=== PATIENT | female | born 1995 | race Hispanic/Latino ===

== ENCOUNTER 2016-04-05 11:42 | Emergency (ER) | payer OTHER ==
--- NOTE | 2016-04-05 12:41 | EDDOCDS ---
Physician Documentation [facility] Name: Lynette Olvera Age: 20 yrs Sex: Female : 1995 Arrival Date: 04/05/2016 Time: 11:42 Bed Triage 1 Private MD: Other - Complete Info On Cds Disposition: 04/05/16 12:31 Discharged to Home/Self Care. Impression: Urticaria, unspecified. - Condition is Stable. - Discharge Instructions: Hives. - Prescriptions for Pepcid 20 mg Oral Tablet - take 1 tablet by ORAL route once daily for 5 days; 5 tablet. Prednisone 20 mg Oral Tablet - take 2 tablets by ORAL route once daily for 5 days TAKE WITH FOOD, EARLIER IN THE DAY; 10 tablet. - Medication Reconciliation, Local Pharmacy Hours form. - Follow up: Emergency Department; When: As needed; Reason: Worsening of conditions. Follow up: Private Physician; When: 2 - 3 days; Reason: Wound/Symptom Recheck, Recheck today's complaints, Continuance of care. - Problem is new. - Symptoms are unchanged. Historical: - Allergies: No known drug Allergies; - Home Meds: 1. Benadryl 25 mg Oral cap 2 caps PRN (Last dose: 04/05/2016 06:00) - PMHx: none; - PSHx: Appendectomy; - Social history: Smoking status: Patient states was never smoker of tobacco. No barriers to communication noted, The patient speaks fluent Tamazight, Speaks appropriately for age. - Family history: Not pertinent. - : The pt / caregiver states he / she is not on anticoagulants. Home medication list is obtained from the patient. - Exposure Risk Screening:: None identified. 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 1 in. (154.94 cm) (R); Pain 3/10; 11:44 Body Mass Index 24.56 (58.97 kg, 154.94 cm) gr2 MDM: 12:28 Financial registration complete. lg Signatures: Cynthia Vallejo RN RN Jovana Hylton, Veronique Lewis lg,RN RN ck1 Geeta Arrington, HOANG BOLTON dt4 MTDD
--- NOTE | 2016-04-05 12:41 | EDDOCDS ---
Nurse's Notes [facility] Name: Lynette Olvera Age: 20 yrs Sex: Female : 1995 Arrival Date: 04/05/2016 Time: 11:42 Bed Triage 1 Private MD: Other - Complete Info On Cds Diagnosis: Urticaria, unspecified Presentation: 04/05 11:46 Presenting complaint: Patient states: Red, raised , itchy rash "all over" for a week ck1 and a half. Onset: The symptoms/episode began/occurred gradually. This patient has not experienced a previous allergic reaction. Anaphylaxis evaluation, the patient reports or I have noted the following symptoms which indicate a significant risk of anaphylaxis: no signs or symptoms of anaphylaxis were noted. Adult Sepsis Screening: The patient does not have new or worsening altered mentation. Adult Sepsis Screening: Patient's respiratory rate is less than 22. Systolic blood pressure is greater than 100. Patient has a qSOFA score of 0- Negative Sepsis Screen. Suicide/Homicide risk assessment- the patient denies having any suicidal and/or homicidal ideations and does not present with any other emotional, behavioral or mental health complaints. Status: The patient is a dependent. Transition of care: patient was not received from another setting of care. 11:46 Acuity: IBIS Level 4 ck1 11:46 Method Of Arrival: Walkin/Carried/Asstd ck1 Triage Assessment: 11:48 General: Appears in no apparent distress, comfortable, Behavior is appropriate for age, ck1 cooperative. Pain: Denies pain. HIV screening NA for this visit Offered previously. Respiratory: Respiratory effort is unlabored, Respiratory pattern is regular, symmetrical, Reports no respiratory complaints. Derm: Rash noted that is itchy, red, raised, on face, back, chest, abdomen, right arm, left arm, right leg and left leg. 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 Benadryl 25 mg Oral cap 2 caps PRN (Last dose: 04/05/2016 06:00) - PMHx: none; - PSHx: Appendectomy; - Social history: Smoking status: Patient states was never smoker of tobacco. No barriers to communication noted, The patient speaks fluent Romansh, Speaks appropriately for age. - Family history: Not pertinent. - : The pt / caregiver states he / she is not on anticoagulants. Home medication list is obtained from the patient. - Exposure Risk Screening:: None identified. Screenin:39 Screening information is obtained from the patient. Fall risk: No risks identified. mcp Assistance ADL's: requires no assistance with activities of daily living. Abuse/DV Screen: The patient / caregiver reports he/she is: not in a situation that causes fear, pain or injury. Nutritional screening: No deficits noted. Advance Directives: There is no active DNR order. home support is adequate. Assessment: 12:38 General: Appears in no apparent distress, Behavior is cooperative. Pain: Denies pain. mcp Neurological: No deficits noted. Respiratory: Airway is patent Breath sounds are clear bilaterally. Derm: Skin is pink, warm & dry. Rash noted that is red, raised, on face, back, chest, abdomen, right arm, left arm, right leg and left leg. Vital Signs: 11:44 BP 117 / 70; Pulse 76; Resp 18 S; Temp 97.6(O); Pulse Ox 99% on R/A; Weight 58.97 kg gr2 (R); Height 5 ft. 1 in. (154.94 cm) (R); Pain 3/10; 11:44 Body Mass Index 24.56 (58.97 kg, 154.94 cm) gr2 Vitals: 11:44 Log In Time: April 05, 2016 at 11:44. gr2 ED Course: 11:43 Patient visited by Abelardo Sanabria. gr2 11:43 Patient moved to Waiting gr2 11:44 Other - Complete Info On Cds is Private Physician. gr2 11:45 Patient visited by Abelardo Sanabria. gr2 11:45 Patient moved to Pre RCE gr2 11:47 Triage Initiated ck1 11:56 Patient moved to Triage 1 mcp 12:13 Geeta Arrington PA-C is PHCP. dt4 12:13 Rema Funes MD is Attending Physician. dt4 12:13 Patient visited by Geeta Arrington PA-C. dt4 12:39 The patient / caregiver is instructed regarding the plan of care and ED course. Patient mcp has correct armband on for positive identification. Bed in low position. Call light in reach. 12:39 No IV's were initiated during this patient's visit. No procedures done that require mcp assistance. Order Results: There are currently no results for this order. Outcome: 12:31 Discharge ordered by Provider. dt4 12:39 Discharge Assessment: patient administered narcotics - no. The following High Risk mcp Discharge criteria are identified: None. Discharged to home ambulatory. Condition: stable. Discharge instructions given to patient, Instructed on discharge instructions, follow up and referral plans. medication usage, Demonstrated understanding of instructions, medications, Pt was receptive of discharge instructions/ teaching. Prescriptions given X 2. No special radiology studies were completed. Property sent home with patient. 12:41 Patient left the ED. mcp Signatures: Cynthia Vallejo RN RN Veronique Underwood RN RN ck1 Abelardo Sanabria gr2 Geeta Arrington, HOANG PAShila dt4 RANDOLPH
--- NOTE | 2016-04-07 13:41 | EDDOCDS ---
Physician Documentation [facility] Name: Lynette Olvera Age: 20 yrs Sex: Female : 1995 Arrival Date: 04/05/2016 Time: 11:42 Bed Triage 1 Private MD: Other - Complete Info On Cds Disposition: 04/05/16 12:31 Discharged to Home/Self Care. Impression: Urticaria, unspecified. - Condition is Stable. - Discharge Instructions: Hives. - Prescriptions for Pepcid 20 mg Oral Tablet - take 1 tablet by ORAL route once daily for 5 days; 5 tablet. Prednisone 20 mg Oral Tablet - take 2 tablets by ORAL route once daily for 5 days TAKE WITH FOOD, EARLIER IN THE DAY; 10 tablet. - Medication Reconciliation, Local Pharmacy Hours form. - Follow up: Emergency Department; When: As needed; Reason: Worsening of conditions. Follow up: Private Physician; When: 2 - 3 days; Reason: Wound/Symptom Recheck, Recheck today's complaints, Continuance of care. - Problem is new. - Symptoms are unchanged. Historical: - Allergies: No known drug Allergies; - Home Meds: 1. Benadryl 25 mg Oral cap 2 caps PRN (Last dose: 04/05/2016 06:00) - PMHx: none; - PSHx: Appendectomy; - Social history: Smoking status: Patient states was never smoker of tobacco. No barriers to communication noted, The patient speaks fluent Belarusian, Speaks appropriately for age. - Family history: Not pertinent. - : The pt / caregiver states he / she is not on anticoagulants. Home medication list is obtained from the patient. - Exposure Risk Screening:: None identified. 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 1 in. (154.94 cm) (R); Pain 3/10; 11:44 Body Mass Index 24.56 (58.97 kg, 154.94 cm) gr2 MDM: 12:28 Financial registration complete. lg 12:54 [facility] Payment Agreement was scanned into [employer] and attached to record. lg 04/07 09:04 T-Sheet-- Draft Copy was scanned into [employer] and attached to record. lg Signatures: Cynthia Vallejo RN Jovana Stevenson mcp, Joce Reg Veronique Tejeda RN RN ck1 Geeta Arrington, HOANG BOLTON dt4 The chart was reviewed and I authenticate all verbal orders and agree with the evaluation and treatment provided.Attachments: 04/05 12:54 [facility] [place] Payment Agreement lg 04/07 09:04 T-Sheet-- Draft Copy lg Chart Complete MTDD
--- NOTE | 2016-04-07 13:41 | EDDOCDS ---
Physician Documentation [facility] Name: Lynette Olvera Age: 20 yrs Sex: Female : 1995 Arrival Date: 04/05/2016 Time: 11:42 Bed Triage 1 Private MD: Other - Complete Info On Cds Disposition: 04/05/16 12:31 Discharged to Home/Self Care. Impression: Urticaria, unspecified. - Condition is Stable. - Discharge Instructions: Hives. - Prescriptions for Pepcid 20 mg Oral Tablet - take 1 tablet by ORAL route once daily for 5 days; 5 tablet. Prednisone 20 mg Oral Tablet - take 2 tablets by ORAL route once daily for 5 days TAKE WITH FOOD, EARLIER IN THE DAY; 10 tablet. - Medication Reconciliation, Local Pharmacy Hours form. - Follow up: Emergency Department; When: As needed; Reason: Worsening of conditions. Follow up: Private Physician; When: 2 - 3 days; Reason: Wound/Symptom Recheck, Recheck today's complaints, Continuance of care. - Problem is new. - Symptoms are unchanged. Historical: - Allergies: No known drug Allergies; - Home Meds: 1. Benadryl 25 mg Oral cap 2 caps PRN (Last dose: 04/05/2016 06:00) - PMHx: none; - PSHx: Appendectomy; - Social history: Smoking status: Patient states was never smoker of tobacco. No barriers to communication noted, The patient speaks fluent Trinidadian, Speaks appropriately for age. - Family history: Not pertinent. - : The pt / caregiver states he / she is not on anticoagulants. Home medication list is obtained from the patient. - Exposure Risk Screening:: None identified. 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 1 in. (154.94 cm) (R); Pain 3/10; 11:44 Body Mass Index 24.56 (58.97 kg, 154.94 cm) gr2 MDM: 12:28 Financial registration complete. lg 12:54 [facility] Payment Agreement was scanned into [employer] and attached to record. lg 04/07 09:04 T-Sheet-- Draft Copy was scanned into [employer] and attached to record. lg Signatures: Cynthia Vallejo RN Jovana Stevenson mcp, Joce Reg Veronique Tejeda RN RN ck1 Geeta Arrington, HOANG BOLTON dt4 The chart was reviewed and I authenticate all verbal orders and agree with the evaluation and treatment provided.Attachments: 04/05 12:54 [facility] Payment Agreement lg 04/07 09:04 T-Sheet-- Draft Copy lg Chart Complete MTDD
--- NOTE | 2016-04-07 13:41 | EDDOCDS ---
Nurse's Notes [facility] Name: Lynette Olvera Age: 20 yrs Sex: Female : 1995 Arrival Date: 04/05/2016 Time: 11:42 Bed Triage 1 Private MD: Other - Complete Info On Cds Diagnosis: Urticaria, unspecified Presentation: 04/05 11:46 Presenting complaint: Patient states: Red, raised , itchy rash "all over" for a week ck1 and a half. Onset: The symptoms/episode began/occurred gradually. This patient has not experienced a previous allergic reaction. Anaphylaxis evaluation, the patient reports or I have noted the following symptoms which indicate a significant risk of anaphylaxis: no signs or symptoms of anaphylaxis were noted. Adult Sepsis Screening: The patient does not have new or worsening altered mentation. Adult Sepsis Screening: Patient's respiratory rate is less than 22. Systolic blood pressure is greater than 100. Patient has a qSOFA score of 0- Negative Sepsis Screen. Suicide/Homicide risk assessment- the patient denies having any suicidal and/or homicidal ideations and does not present with any other emotional, behavioral or mental health complaints. Status: The patient is a dependent. Transition of care: patient was not received from another setting of care. 11:46 Acuity: IBIS Level 4 ck1 11:46 Method Of Arrival: Walkin/Carried/Asstd ck1 Triage Assessment: 11:48 General: Appears in no apparent distress, comfortable, Behavior is appropriate for age, ck1 cooperative. Pain: Denies pain. HIV screening NA for this visit Offered previously. Respiratory: Respiratory effort is unlabored, Respiratory pattern is regular, symmetrical, Reports no respiratory complaints. Derm: Rash noted that is itchy, red, raised, on face, back, chest, abdomen, right arm, left arm, right leg and left leg. 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 Benadryl 25 mg Oral cap 2 caps PRN (Last dose: 04/05/2016 06:00) - PMHx: none; - PSHx: Appendectomy; - Social history: Smoking status: Patient states was never smoker of tobacco. No barriers to communication noted, The patient speaks fluent Tajik, Speaks appropriately for age. - Family history: Not pertinent. - : The pt / caregiver states he / she is not on anticoagulants. Home medication list is obtained from the patient. - Exposure Risk Screening:: None identified. Screenin:39 Screening information is obtained from the patient. Fall risk: No risks identified. mcp Assistance ADL's: requires no assistance with activities of daily living. Abuse/DV Screen: The patient / caregiver reports he/she is: not in a situation that causes fear, pain or injury. Nutritional screening: No deficits noted. Advance Directives: There is no active DNR order. home support is adequate. Assessment: 12:38 General: Appears in no apparent distress, Behavior is cooperative. Pain: Denies pain. mcp Neurological: No deficits noted. Respiratory: Airway is patent Breath sounds are clear bilaterally. Derm: Skin is pink, warm & dry. Rash noted that is red, raised, on face, back, chest, abdomen, right arm, left arm, right leg and left leg. Vital Signs: 11:44 BP 117 / 70; Pulse 76; Resp 18 S; Temp 97.6(O); Pulse Ox 99% on R/A; Weight 58.97 kg gr2 (R); Height 5 ft. 1 in. (154.94 cm) (R); Pain 3/10; 11:44 Body Mass Index 24.56 (58.97 kg, 154.94 cm) gr2 Vitals: 11:44 Log In Time: April 05, 2016 at 11:44. gr2 ED Course: 11:43 Patient visited by Abelardo Sanabria. gr2 11:43 Patient moved to Waiting gr2 11:44 Other - Complete Info On Cds is Private Physician. gr2 11:45 Patient visited by Abelardo Sanabria. gr2 11:45 Patient moved to Pre RCE gr2 11:47 Triage Initiated ck1 11:56 Patient moved to Triage 1 mcp 12:13 Geeta Arrington PA-C is PHCP. dt4 12:13 Rema Funes MD is Attending Physician. dt4 12:13 Patient visited by Geeta Arrington PA-C. dt4 12:39 The patient / caregiver is instructed regarding the plan of care and ED course. Patient mcp has correct armband on for positive identification. Bed in low position. Call light in reach. 12:39 No IV's were initiated during this patient's visit. No procedures done that require mcp assistance. 12:54 Patient name changed from Lynette\\S\\M\\S\\Wade\\S\\ to Lynette\\S\\Kira\\S\\Wade. EDID 12:54 [facility] Payment Agreement was scanned into [employer] and attached to record. 04/07 09:04 T-Sheet-- Draft Copy was scanned into [employer] and attached to record. Order Results: There are currently no results for this order. Outcome: 04/05 12:31 Discharge ordered by Provider. dt4 12:39 Discharge Assessment: patient administered narcotics - no. The following High Risk mcp Discharge criteria are identified: None. Discharged to home ambulatory. Condition: stable. Discharge instructions given to patient, Instructed on discharge instructions, follow up and referral plans. medication usage, Demonstrated understanding of instructions, medications, Pt was receptive of discharge instructions/ teaching. Prescriptions given X 2. No special radiology studies were completed. Property sent home with patient. 12:[address] ED[address] [facility] Signatures: Dispatcher [employer] EDID Cynthia Vallejo, RN RN Jovana Hylton, Joce Reg Veronique Hutchinson RN RN ck1 Abelardo Sanabria gr2 Geeta Arrington PA-C PA-C dt4 Chart Complete MTDD
== END 2016-04-05 12:41 | disposition home or self-care (01) ==
LOC: M ED 11:42
DX: L50.9 Urticaria, unspecified (principal)

== ENCOUNTER 2016-07-20 16:41 | Emergency (ER) | payer OTHER ==
[~2016-07-20] VITALS: Ht 154.9 cm; Wt 59.0 kg
[2016-07-20] MEDS ORDERED: RANI150T (16:47)
[2016-07-20] MEDS ORDERED: VENL75TA2 (16:47)
[2016-07-20] MEDS ORDERED: CETI10TA (16:47)
[2016-07-20] MEDS ORDERED: NS 1,000 ML IV ONE (17:45)
[2016-07-20] MEDS ORDERED: KETOROLAC 30 MG/ML VIAL (J1885) IV ONE (17:45)
[2016-07-20] MEDS ORDERED: ONDANSETRON 4MG/2ML VIAL (J2405) IV ONE (17:45)
[2016-07-20 18:03] LABS: BASO % 0.3 % (0.0-1.0); EOS % 0.1 % (0.0-3.0); LARGE UNSTAINED CELL # 0.1 K/mm3 (0.0-0.4); LARGE UNSTAINED CELL % 0.6 % (0.0-4.0); LYMPH # 0.8 K/mm3 (1.5-6.5); LYMPH % 6.9 % (24.0-44.0); MEAN CORPUSCULAR HEMOGLOBIN 31.6 pg (27.0-33.0); MEAN CORPUSCULAR HGB CONC 34.6 g/dl (32.0-36.5); MEAN CORPUSCULAR VOLUME 91.2 fl (80.0-96.0); MONO # 0.5 K/mm3 (0.0-0.8); NEUTROPHILS # 10.6 K/mm3 (1.8-7.7); NEUTROPHILS % 88.1 % (36.0-66.0); PLATELET COUNT, AUTOMATED 257 k/mm3 (150-450); RED CELL DISTRIBUTION WIDTH 12.4 % (11.5-14.5)
[2016-07-20 18:29] LABS: ALBUMIN 4.5 GM/DL (3.2-5.2); ALBUMIN/GLOBULIN RATIO 1.18 (1.00-1.93); ALKALINE PHOSPHATASE 78 U/L (45-117); ALT/SGPT 45 U/L (12-78); ANION GAP 12 MEQ/L (8-16); AST/SGOT 35 U/L (15-37); BILIRUBIN,DIRECT 0.1 MG/DL (0.0-0.2); BLOOD UREA NITROGEN 11 MG/DL (7-18); CALCIUM LEVEL 9.6 MG/DL (8.5-10.1); CARBON DIOXIDE LEVEL 22 MEQ/L (21-32); CHLORIDE LEVEL 104 MEQ/L (98-107); CREATININE FOR GFR 0.68 MG/DL (0.55-1.02); GLOMERULAR FILTRATION RATE > 60.0 (>60); GLUCOSE, FASTING 112 MG/DL (70-105); POTASSIUM SERUM 3.3 MEQ/L (3.5-5.1); SODIUM LEVEL 138 MEQ/L (136-145); TOTAL PROTEIN 8.3 GM/DL (6.4-8.2)
[2016-07-20] MEDS ORDERED: METOCLOPRAMIDE INJ 10MG/2ML VIAL (J2765) IV ONE (19:30)
[2016-07-20] MEDS ORDERED: ZOFR4TAB3 PO (20:31)
[2016-07-20 20:44] VITALS: BP 123/67
== END 2016-07-20 20:47 | disposition home or self-care (01) ==
LOC: M ED 18:14
DX: R10.84 Generalized abdominal pain (principal); R11.2 Nausea with vomiting, unspecified; R19.7 Diarrhea, unspecified; Z90.89 Acquired absence of other organs; Z79.899 Other long term (current) drug therapy
CPT/HCPCS: 80048; 80076; 81001; 81025; 83690; 85025; 96361; 96374; 96375; 99284; J1885; J2405; J2765

== ENCOUNTER 2016-11-06 10:18 | Inpatient (IN) | payer OTHER ==
[~2016-11-06] VITALS: Ht 154.9 cm; Wt 60.2 kg
[~2016-11-06 10:18] MED LIST: CETI10TA; RANI150T; VENL75TA2; ZOFR4TAB3 PO
[2016-11-06] MEDS ORDERED: NS 1,000 ML IV ONE ×3 (10:45→13:30)
[2016-11-06 11:05] LABS: BASO % 0.2 % (0.0-1.0); LYMPH # 0.9 10^3/uL (1.5-6.5); LYMPH % 5.6 % (24.0-44.0); MEAN CORPUSCULAR HEMOGLOBIN 32.1 pg (27.0-33.0); MEAN CORPUSCULAR HGB CONC 35.7 g/dl (32.0-36.5); MEAN CORPUSCULAR VOLUME 89.7 fl (80.0-96.0); MONO # 0.6 10^3/uL (0.0-0.8); MONO % 3.8 % (0.0-5.0); NEUTROPHILS # 15.1 10^3/uL (1.8-7.7); NEUTROPHILS % 89.9 % (36.0-66.0); PLATELET COUNT, AUTOMATED 237 10^3/uL (150-450); RED CELL DISTRIBUTION WIDTH 12.4 % (11.5-14.5); WHITE BLOOD COUNT 16.8 10^3/uL (4.0-10.0)
[2016-11-06 11:18] LABS: CONTROL LINE HCG INT CTR LINE PRESENT
[2016-11-06 11:23] LABS: INR 1.07
[2016-11-06 11:25] LABS: ALBUMIN 4.4 GM/DL (3.2-5.2); ALBUMIN/GLOBULIN RATIO 1.19 (1.00-1.93); ALKALINE PHOSPHATASE 74 U/L (45-117); ALT/SGPT 69 U/L (12-78); ANION GAP 15 MEQ/L (8-16); AST/SGOT 57 U/L (15-37); BILIRUBIN,DIRECT 0.2 MG/DL (0.0-0.2); BILIRUBIN,TOTAL 0.6 MG/DL (0.2-1.0); BLOOD UREA NITROGEN 10 MG/DL (7-18); CALCIUM LEVEL 9.4 MG/DL (8.5-10.1); CARBON DIOXIDE LEVEL 21 MEQ/L (21-32); CHLORIDE LEVEL 105 MEQ/L (98-107); CREATININE FOR GFR 0.79 MG/DL (0.55-1.02); GLOMERULAR FILTRATION RATE > 60.0 (>60); GLUCOSE, FASTING 108 MG/DL (70-105); POTASSIUM SERUM 3.5 MEQ/L (3.5-5.1); SODIUM LEVEL 141 MEQ/L (136-145); TOTAL PROTEIN 8.1 GM/DL (6.4-8.2)
[2016-11-06] MEDS ORDERED: MORPHINE 2 MG/ML 1ML SYRINGE IV ONE (11:45)
[2016-11-06 11:59] LABS: VENOUS BASE EXCESS -1.3 (-2.0-2.0); VENOUS O2 SATURATION 86.9 % (60.0-80.0); VENOUS PARTIAL PRESSURE CO2 35.8 mmHg (38.0-50.0); VENOUS PARTIAL PRESSURE O2 51.9 mmHg (30.0-50.0); VENOUS STANDARD HCO3 23.1 MEQ/L; VENOUS TOTAL CO2 23.7 MEQ/L (24.0-28.0)
--- NOTE | 2016-11-06 12:09 | REP ---
CT Head without contrast HISTORY: Slurred speech COMPARISON: None There is no intraparenchymal hemorrhage, acute infarct, mass or midline shift. The ventricular system is normal in appearance. There is no extra cerebral collection. There is no fracture. The visualized sinuses are clear. IMPRESSION: There is no intracranial lesion. Signed by Soy Majano MD 11/06/2016 12:00 P
[2016-11-06 12:11] LABS: OSMOLALITY SERUM 293 MOSM/KG (275-295)
[2016-11-06 13:15] LABS: MAGNESIUM LEVEL 1.6 MG/DL (1.8-2.4)
[2016-11-06] MEDS ORDERED: ONDANSETRON 4MG/2ML VIAL (J2405) IV ONE (13:30)
[2016-11-06] MEDS ORDERED: SODIUM CHLORIDE 0.9% 1000 ML IV ONE ×2 (14:00→17:15)
[2016-11-06] MEDS ORDERED: ISOVUE-370 76% 100ML VIAL (Q9967) As Ordered ONE (15:47)
[2016-11-06 17:13] LABS: METHADONE URINE NEGATIVE (NEGATIVE)
[2016-11-06] MEDS: NS 1,000 ML IV SCH (17:32)
[2016-11-06] MEDS ORDERED: ACETAMINOPHEN TAB 650MG DOSE (2X325MG) PO PRN (17:45)
[2016-11-06] MEDS ORDERED: MAG SULF 1GM/100ML (MAG RUN) 1 GM in APPROPRIATE DILUENT 1 EA IV ONE (18:00)
--- NOTE | 2016-11-06 18:08 | ECGEPIP ---
Stationary ECG Study [facility] - ED Test Date: 2016-11-06 Pat Name: AMARJIT PRESSLEY Department: Room: - Gender: F Teacher Drama: jenna : 1995 Requested By: Rema Funes Order Number: [id number] Reading MD: Emiliano Ashley Measurements Intervals [place] Rate: 63 P: 57 NV: 133 QRS: 78 QRSD: 88 T: 66 QT: 398 QTc: 410 Interpretive Statements SINUS RHYTHM WITH SINUS ARRHYTHMIA NO PRIORS Electronically Signed On 11-06-2016 18:08:15 EDT by Emiliano Ashley
[2016-11-06 20:12] VITALS: BP 122/71
--- NOTE | 2016-11-06 20:30 | HPE ---
DATE OF ADMISSION: 11/06/2016 PRIMARY CARE PROVIDER: Brian Browne. HOSPITALIST : Dr. Star Wen CHIEF COMPLAINT: Hand cramps, vomiting, diarrhea, headache, abdominal pain HISTORY OF PRESENT ILLNESS: This is a 21-year-old female with no past medical history aside from vaginal delivery and appendectomy, presents to the emergency room with complaints of vomiting that has been intractable for the past 2 days, epigastric abdominal pain, which is described as sharp, on and off without radiation, and two episodes of loose bowel movements for 1 day. The patient has had similar episodes a few months ago that lasted for about 5 days. She was seen in the emergency room and was sent home at that time. The patient also was found to have significant spasm of her small joints in the hands, lasting for about 2 hours, witnessed by Dr. Sanchez, unable to extend them from a flexed position. She complains of generalized weakness, impaired motor coordination, feeling face numbness and inability to concentrate and slightly irritable. The patient's friends have noticed some slurring of speech. They had recently moved into a new house at [place]. In the emergency room, blood work shows lactic acidosis of 5.6 with no other signs of infection. She denies any dysuria, urgency, frequency, aside from diarrhea that has been there for two days. She otherwise denies cough, shortness of breath. Due to slurring of speech and generalized weakness with unusual complaints, CT of the head was performed, which was negative. KUB was ordered with no results as yet. At this time, the hospitalist service was called to admit for further evaluation of her hand spasms, as well as severe lactic acidosis. Nobody else in the household has similar symptoms to the patient. PAST MEDICAL HISTORY: Appendectomy, regular vaginal delivery. PAST SURGICAL HISTORY: None. HOME MEDICATIONS: None. ALLERGIES: None. FAMILY HISTORY: Mother with leukemia at age 49, father alive in his 50s with hypertension. REVIEW OF SYSTEMS: As per history of present illness. PHYSICAL EXAMINATION: VITAL SIGNS: Afebrile, temperature 97.6, pulse 66 to 104, blood pressure 141/81 , 98% pulse oximetry. Urine culture is pending. Urinalysis is negative with trace ketones, urine sodium, potassium and chloride are pending. Urine HCG is negative. GENERAL: The patient is awake, alert, oriented times three. Slow to answer, but appropriate fluent speech. HEENT: Anicteric sclerae. Pupils are equal, round and reactive. Extraocular muscles intact. Normocephalic. Atraumatic. Moist mucous membranes. No cervical lymphadenopathy or pharyngeal erythema or tonsillar exudate. LUNGS: Clear to auscultation. No wheezing, rales or rhonchi. HEART: S1, S2. Sinus rhythm. ABDOMEN: Soft, slightly tender in the epigastric region. No rebound, guarding. Positive bowel sounds. EXTREMITIES: No cyanosis, clubbing or pitting edema. LABORATORY DATA: White count 16.8, hemoglobin 13, hematocrit 37, platelet count 237. Neutrophils 89.9, lymphocytes 5.6, sodium 141, potassium 3.5, chloride 105 , bicarbonate 21, BUN 10, creatinine 0.79, glucose of 108, lactic acid of 5.6, calcium 9.4, magnesium 1.6, total bilirubin 0.6, direct bilirubin 0.2, AST 57, ALT 59, alkaline phosphatase 74, total CK 64, total protein 8.1, albumin 4.4, lipase 98. ASSESSMENT AND PLAN: This is a 21-year-old female with no past medical history who presented to the emergency room with a 2 day history of nausea, vomiting, intractable epigastric abdominal pain, and diarrhea for 2 days, and severe hand spasms, slurring of speech, headaches, impaired motor coordination, difficulty concentrating, irritability who presets with the following issues: 1. Lactic acidosis with leukocytosis. At this time, no source of infection. We will obtain a stool and urine culture. Check the lactic acidosis. Chronic carboxyhemoglobin. Check arterial blood gas. Supplemental oxygen with high flow oxygen. IV fluid hydration. No empirical antibiotics as there is no focus of infection Check chest x-ray and abdominal x-ray. 2. Abdominal pain in the epigastric region with negative CT of the abdomen and pelvis. The patient has severe lactic acidosis. No empiric antibiotics for now as she has had no fevers. Continue with IV fluids. Full supportive care. Carafate and Protonix for now. Evaluate epigastric pain, we will obtain an upper GI series in the morning. 3. Deep vein thrombosis (DVT) prophylaxis with compression stockings. [facility]
[2016-11-06] MEDS: SUCRALFATE 1 GM TAB PO SCH (20:39)
[2016-11-06] MEDS: PANTOPRAZOLE 40MG INJ (PROTONIX) (C9113) IV SCH (20:40)
[2016-11-06] MEDS: ONDANSETRON 4MG/2ML VIAL (J2405) IV PRN (20:58)
[2016-11-07] VITALS: BP 108/70
[2016-11-07] MEDS: NS 1,000 ML IV SCH ×2 (00:33→05:20)
[2016-11-07] MEDS: SUCRALFATE 1 GM TAB PO SCH ×5 (00:33→23:34)
--- NOTE | 2016-11-07 01:01 | REP ---
Clinical: Leukocytosis . Comparison: None . Technique: PA and lateral. Findings: The mediastinum and cardiac silhouette are normal. The lung collado are clear and without acute consolidation, effusion, or pneumothorax. The skeletal structures are intact and normal. Impression: 1. No acute cardiopulmonary process. Signed by Giuseppe Cooley MD 11/07/2016 12:53 A
[2016-11-07 06:55] LABS: BASO % 0.4 % (0.0-1.0); EOS % 0.1 % (0.0-3.0); IMMATURE GRANULOCYTE % 0.3 % (0-0); LYMPH # 2.7 10^3/uL (1.5-6.5); LYMPH % 28.7 % (24.0-44.0); MEAN CORPUSCULAR HEMOGLOBIN 31.5 pg (27.0-33.0); MEAN CORPUSCULAR HGB CONC 34.1 g/dl (32.0-36.5); MEAN CORPUSCULAR VOLUME 92.2 fl (80.0-96.0); MONO # 0.9 10^3/uL (0.0-0.8); MONO % 9.8 % (0.0-5.0); NEUTROPHILS # 5.7 10^3/uL (1.8-7.7); NEUTROPHILS % 60.7 % (36.0-66.0); PLATELET COUNT, AUTOMATED 174 10^3/uL (150-450); RED CELL DISTRIBUTION WIDTH 12.6 % (11.5-14.5); WHITE BLOOD COUNT 9.4 10^3/uL (4.0-10.0)
[2016-11-07 07:40] LABS: ANION GAP 7 MEQ/L (8-16); BLOOD UREA NITROGEN 5 MG/DL (7-18); CALCIUM LEVEL 7.7 MG/DL (8.5-10.1); CARBON DIOXIDE LEVEL 25 MEQ/L (21-32); CHLORIDE LEVEL 110 MEQ/L (98-107); CREATININE FOR GFR 0.43 MG/DL (0.55-1.02); GLOMERULAR FILTRATION RATE > 60.0 (>60); GLUCOSE, FASTING 95 MG/DL (70-105); SODIUM LEVEL 142 MEQ/L (136-145)
[2016-11-07 08:00] VITALS: BP 100/64
[2016-11-07] MEDS ORDERED: POTASSIUM CHLORIDE 10 MEQ SR TABLET PO ONE (09:45)
[2016-11-07] MEDS: MORPHINE 2 MG/ML 1ML SYRINGE IV PRN ×2 (10:29→13:03)
[2016-11-07] MEDS: PANTOPRAZOLE 40MG INJ (PROTONIX) (C9113) IV SCH (10:30)
[2016-11-07] MEDS: ONDANSETRON 4MG/2ML VIAL (J2405) IV PRN (10:31)
[2016-11-07] MEDS: ENOXAPARIN 40 MG/0.4 ML SYRINGE (J1650) SC SCH (10:34)
--- NOTE | 2016-11-07 15:22 | IPN ---
DATE: 11/07/2016 SUBJECTIVE: A 21-year-old female seen at bedside, resting comfortably but continues to have some intermittent, colicky abdominal pain. She states that this is the third episode she has had in the last several months with abdominal pain, nausea and vomiting, which she describes having bilious emesis at times. She is unable to equate it occurring with certain foods. OBJECTIVE: Temperature is 97.9, pulse 86, respiratory rate 18, blood pressure 100/64, SPO2 is 98% on room air. GENERAL: The patient appears to be in no acute distress, alert, oriented. HEENT: Unremarkable. LUNGS: Clear. HEART: Regular rate and rhythm. ABDOMEN: Soft. EXTREMITIES: No edema. No calf tenderness. LABORATORY DATA: White count 9.4, hemoglobin 11.3, platelets 174,000. Sodium 142, potassium 3.0, chloride 110, bicarbonate 25, anion gap 7, BUN is 5, creatinine 0.43, glucose 95, lactic acid 1.4, calcium 7.7, TSH 0.568. Gallbladder ultrasound is pending. ASSESSMENT AND PLAN: 1. Lactic acidosis and leukocytosis, resolved. No source of infection, likely related to recurrent emesis. 2. Abdominal pain which appears to be colicky in nature. We will do an ultrasound of the right upper quadrant to rule out gallbladder disease. CT of the abdomen and pelvis was negative. Otherwise, she is continued with IV fluids. We will see if we can advance her diet. Epigastric pain has resolved. She has no signs of pancreatitis. If her gallbladder ultrasound is negative, we may need to consider outpatient followup with gastroenterology (GI) with esophagogastroduodenoscopy (EGD). 3. Deep vein thrombosis (DVT) prophylaxis with compression stockings.
[2016-11-07 16:00] VITALS: BP 111/76
--- NOTE | 2016-11-07 16:25 | REP ---
CT ABDOMEN AND PELVIS WITH IV CONTRAST: TECHNIQUE: Axial contrast enhanced images from the lung bases to the pubic symphysis using 100 mL Isovue 370 intravenous contrast material with multiplanar reformations. Visualized lung bases are clear. Liver, spleen, adrenals, pancreas, and kidneys are unremarkable in appearance. There is no abdominal aortic aneurysm. There is no adenopathy. There is no free air or free fluid. No bowel wall thickening is seen. There is a small hiatal hernia. Urinary bladder is moderately distended. No pelvic mass is seen. IMPRESSION: Small hiatal hernia. No acute findings. Signed by Hans Cordon MD 11/07/2016 05:26 P
[2016-11-07 20:00] VITALS: BP 100/63
[2016-11-07] MEDS: PANTOPRAZOLE 40MG TAB (PROTONIX) PO SCH (20:28)
[2016-11-08] VITALS: BP 113/71
[2016-11-08] MEDS: SUCRALFATE 1 GM TAB PO SCH (05:51)
--- NOTE | 2016-11-08 06:47 | REP ---
Clinical: Upper abdominal pain with nausea and vomiting. Technique: Real time barber scale ultrasound examination using curved array transducer. Findings: Liver and pancreas are normal in contour, size, echogenicity without focal hepatic or pancreatic lesions identified. A 1.6 cm hypoechoic area in the left lobe of the liver corresponds to hypervascular area on CT dated 11/06/2016 which may reflect normal variant such as transient hepatic attenuation difference (DARIUSZ) or small atypical hemangioma. The gallbladder is unremarkable and without wall thickening, gallstones, or pericholecystic fluid. No biliary ductal dilatation is appreciated and the common bile duct measures 2.6 mm diameter. The right kidney is normal in reniform shape and measures 10.9 x 5.3 x 3.9 cm. Visualized abdominal aorta normal. No ascites. Impression: 1. Small 1.6 cm hypoechoic focus within the liver corresponds to hypervascular area on recent CT and likely represents a benign DARIUSZ or atypical hemangioma and less likely significant finding. Consideration for 6-month follow-up by ultrasound or multi phase CT may be obtained. 2. Otherwise normal right upper quadrant ultrasound. Signed by Giuseppe Cooley MD 11/08/2016 06:38 A
[2016-11-08 07:05] LABS: ANION GAP 6 MEQ/L (8-16); BLOOD UREA NITROGEN 6 MG/DL (7-18); CALCIUM LEVEL 8.7 MG/DL (8.5-10.1); CARBON DIOXIDE LEVEL 28 MEQ/L (21-32); CHLORIDE LEVEL 105 MEQ/L (98-107); CREATININE FOR GFR 0.48 MG/DL (0.55-1.02); GLOMERULAR FILTRATION RATE > 60.0 (>60); GLUCOSE, FASTING 100 MG/DL (70-105); POTASSIUM SERUM 3.4 MEQ/L (3.5-5.1); SODIUM LEVEL 139 MEQ/L (136-145)
[2016-11-08 08:00] VITALS: BP 97/65
[2016-11-08] MEDS ORDERED: FLUZ1INJ IM (08:18)
[2016-11-08] MEDS ORDERED: POTASSIUM CHLORIDE 10 MEQ SR TABLET PO ONE (08:30)
[2016-11-08] MEDS: PANTOPRAZOLE 40MG TAB (PROTONIX) PO SCH (08:43)
[2016-11-08] MEDS: ENOXAPARIN 40 MG/0.4 ML SYRINGE (J1650) SC SCH (08:44)
--- NOTE | 2016-11-08 08:46 | DSES ---
DATE OF ADMISSION: 11/06/2016 DATE OF DISCHARGE: CONSULTANTS: None. PROCEDURES: None. COMPLICATIONS: None. ADMISSION/DISCHARGE DIAGNOSES: 1. Abdominal pain, possible gastroenteritis, symptoms resolved. 2. Lactic acidosis, resolved. 3. Leukocytosis, resolved. 4. Hypoechoic focus within the liver documented on both ultrasound and CAT scan of the abdomen reflecting normal variant such as transient hepatic attenuation difference and recommending 6-month followup by ultrasound. 5. Positive cannabinoid on drug screen. BRIEF HOSPITAL COURSE: Ms. Olvera is a 21-year-old female who presented to the emergency department on 11/06/2016 with vague abdominal complaints which appeared to be more colicky. This has been repeated episodes three times in the last few months with nausea, vomiting, bilious emesis and diarrhea. She was unable to recall whether it was associated with any particular foods or alcohol. At any rate, her CT scan was only remarkable for a hypoechoic area of 1.6 cm in the left lobe of the liver confirmed on ultrasound with negative gallbladder disease noted. Her symptoms did improve and by the morning of discharge had completely resolved. The night before, she was able tolerate a chicken sandwich from [employer] without any issues and no further abdominal complaints this morning. She was felt to be appropriate for discharge. For further information regarding intake labs and diagnostics, please refer to the history and physical (H and P). PHYSICAL EXAMINATION: Today, temperature is 98.9, pulse 81, respiratory rate 18, blood pressure (BP) 113/71, and SPO2 is 100% on room air. General: The patient appears to be in no acute distress. She is alert, pleasant. HEENT: Unremarkable. Lungs: Clear. Heart: Regular rate and rhythm. Abdomen: Soft. Extremities: No edema. LABORATORY DATA: White count 9.4, hemoglobin 11.3 - likely dilutional, platelets 174,000. Sodium 139, potassium 3.4, chloride 105, bicarb 28, anion gap 6, BUN 6, creatinine 0.48, glucose 100, calcium 8.7. DISCHARGE CONDITION: Good. DISPOSITION: Discharged home. DISCHARGE MEDICATIONS: None; however, she will receive a dose of potassium chloride prior to being discharged. DISCHARGE INSTRUCTIONS: Discharge to home. Activity as tolerated. Regular diet. Follow up with [facility] in a week. Seek medical attention if symptoms should worsen or recur. She should also have repeat ultrasound or CT scan done in 6 months for what is likely a normal variant of the left lobe of the liver, a 1.6 cm hypoechoic lesion. The discharge took 35 minutes.
[2016-11-08] MEDS ORDERED: INFLUENZA QUADRIVALENT PF VACCINE 0.5ML SYRINGE (90686) IM ONE (09:00)
[2016-11-09 14:16] LABS: Creatinine(Crt),U 0.49 g/L (0.30-3.00); Lead, Urine None Detected ug/L (0-49)
[2016-11-14 14:32] LABS: D-LACTATE <0.20 mM (0.00-0.49)
== END 2016-11-08 09:25 | disposition home or self-care (01) | DRG 392 ==
LOC: M ED 10:18 → M ED INP 17:32 → M PED 20:13
PROVIDERS: ADMIT General Practice; ATTEND Hospitalist
DX: K52.9 Noninfective gastroenteritis and colitis, unspecified (principal); E87.2 Acidosis; D72.829 Elevated white blood cell count, unspecified; K76.9 Liver disease, unspecified